=== PATIENT | male | born 1980 | race Caucasian/White ===

== ENCOUNTER 2016-10-24 02:10 | Emergency (ER) | payer SELFPAY ==
[~2016-10-24] VITALS: Ht 172.7 cm; Wt 72.6 kg
[2016-10-24] MEDS ORDERED: NO MEDICATIONS (02:22)
== END 2016-10-24 05:15 ==
LOC: SED 02:10
DX: F10.129 Alcohol abuse with intoxication, unspecified (principal)
CPT/HCPCS: 99283